=== PATIENT | male | born 1940 | race Asian ===

== ENCOUNTER 2023-12-13 10:28 | Emergency (ER) | payer MEDICARE, SELFPAY ==
[2023-12-13 10:29] VITALS: BP 140/78; PULSE 79; RESP 18; TEMP 36; O2SAT 98; BMI 21.2
--- NOTE | 2023-12-13 11:52 | CT_ITS ---
EXAM: CT ABDOMEN AND PELVIS WITH INTRAVENOUS CONTRAST CLINICAL INDICATION: Lower abdominal pain. TECHNIQUE: Helically acquired images were obtained of the abdomen and pelvis with intravenous contrast. This CT exam was performed using one or more of the following dose reduction techniques: automated exposure control, adjustment of the mA and/or kV according to patient size, and/or use of iterative reconstruction technique. CONTRAST: 75 mL of IV Isovue-370. RADIATION DOSE: CTDIvol = 7.49 mGy, DLP = 237.85 mGy-cm COMPARISON: No relevant prior studies available. FINDINGS: LOWER THORAX: Mild right posterior pleural effusion. Cardiomegaly. 5.3 mm loculated left posterior pericardial effusion. ABDOMEN: LIVER: See below. GALLBLADDER AND BILE DUCTS: Unremarkable. No calcified gallstones. No gallbladder distention or wall edema. No intra- or extrahepatic biliary ductal dilation. PANCREAS: Unremarkable. No focal cystic or solid mass. SPLEEN: Unremarkable. Normal size without focal cystic or solid mass. ADRENALS: Unremarkable. No nodules. KIDNEYS AND URETERS: Unremarkable. Normal renal size and position. No hydronephrosis. STOMACH AND BOWEL: Unremarkable. No stomach or bowel distention. No focal inflammatory change. PELVIS: APPENDIX: Normal. BLADDER: Unremarkable. REPRODUCTIVE: Unremarkable as visualized. No mass. ABDOMEN and PELVIS: INTRAPERITONEAL SPACE: Unremarkable. No ascites or other fluid collection. No free air. BONES/JOINTS: Grade 1 degenerative anterolisthesis of L4 on L5 due to moderately pronounced left iterative facet arthropathy and moderate right degenerative facet arthropathy. Pronounced L5-S1 disc space height narrowing with endplate sclerosis and degenerative vacuum phenomena. Minimal anterior wedging of the L1 superior endplate and minimal anterior wedging of the T12 and T11 inferior endplate are presumably from remote injury. No lytic or blastic lesions. SOFT TISSUES: Unremarkable. No discrete abdominal or pelvic wall hernia. VASCULATURE: 1.1 cm nonenhancing low-attenuation lesion behind the right portal vein of segment 5 of the liver parenchyma. This has a CT number of 14.94 Hounsfield units and is consistent with simple cyst. Calcified plaques along the tortuous abdominal aorta without demonstrated narrowing or aneurysmal dilatation. Calcified plaques in the common iliac artery without demonstrated narrowing. LYMPH NODES: Unremarkable. No enlarged lymph nodes. CT/Abdomen/Pelvis W IV Cont ONLY IMPRESSION: 1. No suspicious acute abnormality in the abdomen and pelvis. 2. Grade 1 degenerative anterolisthesis of L4 on L5. 3. Pronounced L5-S1 degenerative disc space height narrowing with endplate sclerosis and degenerative vacuum phenomenon. 4. Mild right posterior pleural effusion. 5. Small loculated left posterior pericardial effusion. Electronically Signed: Chin Killian MD at 13:28 EDT ,
--- NOTE | 2023-12-13 12:03 | ED.VIS.GI ---
HPI HPI - GI History of Present Illness Chief Complaint: Abd Pain Informant: patient and spouse/S.O. Narrative Narrative: For the past 10 days, patient has been having lower abdominal pain that resolves after he has a bowel movement. He is continuing to have bowel movements. He states he feels constipated and has been pushing really hard when sitting on the toilet in order to have 1; once yesterday and once today, he had brief syncopal episodes without any other prodromal symptoms other than lightheadedness and without any fall or injury, both occurring while straining to have a bowel movement. He states yesterday he took MiraLAX, 1 cup, and today his bowel movement has been loose/watery. No blood. No nausea or vomiting. He states he is not in pain right now but wants to know why he is continuing to have this issue. No history of any abdominal surgeries. PFSH [facility] Home Medications ?Medication ?Instructions ?Recorded ?Last Taken ?Type allopurinol 300 mg tablet 300 mg PO 12/13/23 Unknown History amlodipine 5 mg tablet 5 mg PO BID 12/13/23 Unknown History benztropine 0.5 mg tablet 0.5 mg PO DAILY 12/13/23 Unknown History benztropine 1 mg tablet 1 mg PO DAILY 12/13/23 Unknown History dicyclomine 10 mg capsule 10 mg PO Q6H PRN PRN abdominal 12/13/23 Unknown Rx discomfort #20 caps docusate sodium 100 mg capsule 100 mg PO BID #30 caps 12/13/23 Unknown Rx (Colace) finasteride 5 mg tablet mg PO 12/13/23 Unknown History labetalol 100 mg tablet 100 mg PO BID 12/13/23 Unknown History magnesium citrate 150 ml PO X1 #1 BOTTLE 12/13/23 Unknown Rx tamsulosin 0.4 mg capsule 0.4 mg PO DAILY 12/13/23 Unknown History Allergy/AdvReac Type Severity Reaction Status Date / Time No Known Allergies Allergy Verified 12/13/23 10:31 Social History Smoking Status: Never smoker ROS ROS ED Constitutional Constitutional ED: Denies chills or fever(s) Eyes Eyes: Denies change in vision or diplopia ENT ENT ED: Denies rhinorrhea or sore throat Cardiovascular Cardiovascular: Denies chest pain or palpitations Respiratory/Chest Respiratory/Chest: Denies cough or dyspnea Gastrointestinal Gastrointestinal: Reports as per HPI, abdominal pain, constipation and diarrhea; Denies hematochezia, nausea or vomiting Genitourinary Genitourinary ED: Denies dysuria or hematuria Musculoskeletal Musculoskeletal: Denies back pain or neck pain Integumentary Denies abscess or rash Neurologic Neurologic: Denies headache(s), paresthesias or weakness Psychiatric Psychiatric: Denies suicidal thoughts EXAM Physical Exam Const Vital Signs: 12/13/23 10:29 12/13/23 12:42 12/13/23 14:26 Temperature 96.8 F L Temperature Source Temporal Pulse Rate 79 67 78 Respiratory Rate 18 18 18 Blood Pressure 140/78 H 168/75 H 158/69 H Blood Pressure Mean 98 106 98 Pulse Ox 98 98 99 Oxygen Delivery Method Room Air Room Air Room Air Positive well nourished and well developed General Appearance ED: well developed and NAD HEENT Reports moist mucous membranes normocephalic and atraumatic Eyes PERRL and EOMs intact bilaterally Neck full ROM and supple Resp normal respiratory effort and clear to auscultation bilaterally Cardio regular rate, regular rhythm and no murmurs GI non-distended GI Narrative: Tender in suprapubic area as well as epigastrium, both without guarding or rebound. No right upper quadrant tenderness. Negative Solis. Auscultation: normoactive bowel sounds Palpation: soft Back/Spine no CVA tenderness General Back: other FROM Extremity normal to inspection General Extremety ED: Negative for edema, pulses abnormal or tenderness General Extremity: Negative for edema or pulses abnormal Neuro oriented x3, CN's II-XII intact bilaterally and no sensory deficits noted Sensorium / Orientation: awake and alert Motor Exam: strength 5/5 throughout Psych mental status grossly normal and thought process normal Skin no rashes or lesions noted and no wounds MDM MDM MDM Narrative Medical decision making narrative: Obtained labs including hepatic enzymes and lipase given that he had some epigastric tenderness as well, but mainly to evaluate for diverticulitis or something lower GI, colitis, etc. I reviewed the CT with contrast images and report which I agree with, it is negative for any acute. There was some minor incidental findings that were lower thoracic I do not think any of these have anything to do with the patient's symptoms and he has no symptoms from those findings. At 1 point patient was having repeat pain, I offered Zofran and morphine but he declined and then felt better. I offering him some dicyclomine as well as a prescription, and then giving him stool softener prescription as well as magnesium citrate. Follow-up advised. He is comfortable with that plan. Lab Data Attestation: I reviewed the patient's lab results. Labs: Laboratory Results - last 24 hr 12/13/23 12:00 WBC 4.6 RBC 3.70 L Hgb 11.4 L Hct 34.0 L MCV 91.9 MCH 30.8 MCHC 33.5 RDW Std Deviation 46.0 H RDW Coeff of Stuart 13.5 Plt Count 286 MPV 9.6 Immature Gran % (Auto) 0.200 Neut % (Auto) 59.6 Lymph % (Auto) 28.4 Rice % (Auto) 7.2 Eos % (Auto) 3.7 Baso % (Auto) 0.9 Absolute Neuts (auto) 2.8 Absolute Lymphs (auto) 1.31 Nucleated RBC % 0 Sodium 138 Potassium 3.7 Chloride 106 Carbon Dioxide 26.0 Anion Gap 6 BUN 21 H Creatinine 0.97 Estim Creat Clear Calc 46.71 Est GFR (MDRD) Af Amer 96 Est GFR (MDRD) Non-Af 79 BUN/Creatinine Ratio 21.7 H Glucose 120 H Calcium 8.9 Total Bilirubin 0.50 AST 23 ALT 24 Alkaline Phosphatase 53 Total Protein 7.0 Albumin 3.5 Globulin 3.5 Albumin/Globulin Ratio 1.0 Lipase 39 Radiography Diagnostic Testing: Clinical Impression(s) from Imaging Studies Abdomen/Pelvis CT 12/13/23 11:52 IMPRESSION: 1. No suspicious acute abnormality in the abdomen and pelvis. 2. Grade 1 degenerative anterolisthesis of L4 on L5. 3. Pronounced L5-S1 degenerative disc space height narrowing with endplate sclerosis and degenerative vacuum phenomenon. 4. Mild right posterior pleural effusion. 5. Small loculated left posterior pericardial effusion. Electronically Signed: Chin Killian MD at 13:28 EDT , Discharge Plan Triage Chief Complaint: Abd Pain ED Provider: Jacoby Connelly Dx/Rx/DC Orders Clinical Impression: Abdominal pain, lower Instructions: Abdominal Pain Prescriptions: New dicyclomine 10 mg capsule 10 mg PO Q6H PRN PRN (Reason: abdominal discomfort) Qty: 20 0RF magnesium citrate Solution 150 ml PO X1 Qty: 1 0RF Rx Instructions: After drinking, drink plenty of water. If you do not have a significant watery bowel movement in 24 hours, repeat with the other half of the bottle. docusate sodium [Colace] 100 mg capsule 100 mg PO BID Qty: 30 0RF No Action allopurinol 300 mg tablet 300 mg PO benztropine 0.5 mg tablet 0.5 mg PO DAILY amlodipine 5 mg tablet 5 mg PO BID tamsulosin 0.4 mg capsule 0.4 mg PO DAILY benztropine 1 mg tablet 1 mg PO DAILY labetalol 100 mg tablet 100 mg PO BID finasteride 5 mg tablet PO Primary Care Provider: Care Physician,No Primary Referrals: Vidhi Stephen MD [Med Staff - Electronics Specialist] - As soon as possible Care Physician,No Primary [Primary Care Provider] - Print Language: Maldivian Disposition Disposition: Home, Self Care
[2023-12-13 12:17] LABS: Absolute Lymphocyte Count 1.31 X10^3/uL (0.83-4.51); Absolute Neutrophil Count 2.8 X10^3/uL (2.0-7.7); Basophil# 0.04 X10^3/uL; Basophil% 0.9 % (0-1); Eosinophil# 0.17 X10^3/uL; Eosinophils% 3.7 % (0-5); Hemoglobin 11.4 g/dL (13.0-16.5); Lymphocyte # 1.31 X10^3/ul (0.83-4.51); Lymphocyte % 28.4 % (19-41); Mean Corp Hgb Conc 33.5 g/dL (32-36); Mean Corpuscular Hgb 30.8 pg (27.0-32.0); Mean Corpuscular Volume 91.9 fL (80-94); Mean Platelet Vol. 9.6 fl (6.2-12.0); Monocyte# 0.33 X10^3/uL; Monocyte% 7.2 % (0-10); NRBC Flagged by Analyzer 0 % (0-5); Neutrophil # 2.75 X10^3/uL (2.7-7.7); Neutrophil % 59.6 % (47-70); Platelet Count 286 K/mm3 (150-450); RBC Distribution Width CV 13.5 % (11.6-14.6); White Blood Count 4.6 K/mm3 (4.4-11.0)
[2023-12-13 12:30] LABS: AST(SGOT) 23 U/L (15-37); Alanine Aminotransfer ALT/SGPT 24 U/L (16-61); Albumin, Serum 3.5 g/dL (3.2-5.0); Alkaline Phosphatase 53 U/L (45-117); Anion Gap 6 (5-15); BUN 21 mg/dL (7-18); BUN/Creat Ratio 21.7 RATIO (10-20); Calcium,Total 8.9 mg/dL (8.5-10.1); Chloride 106 mmol/L (98-107); Creatinine, Serum 0.97 mg/dL (0.70-1.30); EST Glomerular Filtration Rate 79 mL/min (>60); Est Glom Filt Rate - Afr Amer 96 mL/min (>60); Estimated Creatinine Clearance 46.71 ml/min; Globulin 3.5 g/dL (2.2-4.2); Glucose 120 mg/dL (74-106); Lipase 39 U/L (13-75); Potassium 3.7 mmol/L (3.5-5.1); Sodium Level 138 mmol/L (136-145)
[2023-12-13] MEDS: 0.9% Normal Saline (1000mL) 1,000 ML 125 ML IV (12:38)
[2023-12-13 12:42] VITALS: BP 168/75; PULSE 67; RESP 18; O2SAT 98
[2023-12-13 14:26] VITALS: BP 158/69; PULSE 78; RESP 18; O2SAT 99
[2023-12-13 16:09] VITALS: BP 126/78; PULSE 60; RESP 18; TEMP 36.8; O2SAT 99
== END 2023-12-13 16:09 | disposition home or self-care (01) ==
PROVIDERS: Emergency Provider Emergency Medicine; Visit Provider Emergency Medicine
DX: R10.30 Lower abdominal pain, unspecified (principal); Z79.899 Other long term (current) drug therapy
CPT/HCPCS: 74177; 80053; 83690; 85025; 96360; 96361; 99282; J7030; Q9967; A4216; J2405